=== PATIENT | male | born 1960 | race African-American/Black ===

== ENCOUNTER 2017-05-06 09:13 | Emergency (ER) | payer BC ==
[~2017-05-06] VITALS: Ht 172.7 cm; Wt 64.0 kg
[~2017-05-06 09:13] MED LIST: AMLO10TA80 PO; ATEN-177 PO; GABA-531 PO; METH5TAB2 PO; NAPR-681 PO; OMEP20CA10 PO
[2017-05-06] MEDS ORDERED: ALBUTEROL (0.083%) 2.5MG/3ML NEB HHN STA (11:11)
[2017-05-06 11:52] LABS: CARBON DIOXIDE 32 mEq/L (21-32); CHLORIDE 97 mEq/L (98-107)
[2017-05-06 12:09] VITALS: BP 155/95
[2017-05-06 12:18] LABS: BASOPHILS % 0.6 % (0.0-2.0); EOSINOPHILS % 0.2 % (0.0-5.0); HEMATOCRIT. 42.5 % (42.0-52.0); HEMOGLOBIN. 14.3 g/dL (14.0-18.0); LYMPHOCYTES % 22.2 % (20.0-50.0); MEAN CORPUSCULAR HEMOGLOBIN 29.1 pg (28.0-32.0); MEAN CORPUSCULAR VOLUME 86.4 fL (80.0-94.0); MEAN PLATELET VOLUME 8.4 fl (7.4-10.4); MONOCYTES % 10.6 % (2.0-8.0); NEUTROPHILS % 66.4 % (40.0-76.0); PLATELET 277 x1000/uL (130-400); RED BLOOD CELL COUNT 4.92 mill/uL (4.7-6.1); RED CELL DISTRIBUTION WIDTH 13.4 % (11.6-14.6)
== END 2017-05-06 12:52 | disposition home or self-care (01) ==
LOC: ER 09:40
DX: R05 Cough (principal); R06.02 Shortness of breath; D72.829 Elevated white blood cell count, unspecified
CPT/HCPCS: 36415; 71010; 80053; 85025; 94640; 99285; J7611

== ENCOUNTER 2021-02-12 12:05 | Inpatient (IN) | payer OTHER, BC ==
[~2021-02-12] VITALS: Ht 167.6 cm; Wt 111.1 kg
[~2021-02-12 12:05] MED LIST changes: -GABA-531 PO; +GABA-532 PO; +METH-816 PO; -METH5TAB2 PO; -OMEP20CA10 PO; +OMEP20CA14 PO
[2021-02-12] MEDS ORDERED: KETOROLAC 30MG/ML VIAL IV STA (14:06)
[2021-02-12] MEDS ORDERED: NITROGLYCERIN 0.4MG TABLET SL SL PRN (14:15)
[2021-02-12] MEDS ORDERED: ASPIRIN 81MG TABLET PO ONE (14:15)
[2021-02-12] MEDS ORDERED: SODIUM CHLORIDE 0.9% 1,000 ML IV ONE (14:15)
[2021-02-12 17:14] LABS: D-DIMER 1.14 mg/L FEU (<0.50); INR 1.1; PARTIAL THROMBOPLASTIN TIME 32.8 sec (23.4-31.0); PROTHROMBIN TIME 11.8 sec (9.6-11.0)
[2021-02-12 17:16] LABS: BASOPHILS % 0.4 % (0.0-2.0); CHLORIDE 105 mEq/L (98-107); EOSINOPHILS % 0.8 % (0.0-5.0); HEMATOCRIT. 40.6 % (42.0-52.0); HEMOGLOBIN. 13.5 g/dL (14.0-18.0); LYMPHOCYTES % 23.6 % (20.0-50.0); MEAN CORPUSCULAR HEMOGLOBIN 28.9 pg (28.0-32.0); MEAN CORPUSCULAR VOLUME 87.2 fL (80.0-94.0); MEAN PLATELET VOLUME 8.4 fl (7.4-10.4); MONOCYTES % 12.2 % (2.0-8.0); PLATELET 230 x1000/uL (130-400); RED BLOOD CELL COUNT 4.65 mill/uL (4.7-6.1); RED CELL DISTRIBUTION WIDTH 13.5 % (11.6-14.6)
[2021-02-12] MEDS ORDERED: LEVOFLOXACIN 500MG PREMIX 100 ML IV ONE (17:45)
[2021-02-12] MEDS ORDERED: ONDANSETRON HCL 4MG/2ML INJ IV PRN (22:00)
[2021-02-12] MEDS ORDERED: ACETAMINOPHEN 325MG TABLET PO PRN (22:00)
[2021-02-12] MEDS ORDERED: HYDROMORPHONE HCL/PF 2MG/ML CPJ IV PRN (22:00)
[2021-02-12] MEDS ORDERED: CLONIDINE 0.1MG TABLET PO PRN (22:00)
[2021-02-12] MEDS ORDERED: NALOXONE HCL 0.4MG/ML VIAL IV PRN (22:15)
[2021-02-12 23:00] VITALS: BP 154/85
[2021-02-13] VITALS (7 sets, daily range): BP systolic 146–178; BP diastolic 62–96
[2021-02-13] MEDS: HYDROCODONE/ACETAMINOPHEN 5/325MG TABLET PO PRN ×2 (03:36→08:27)
[2021-02-13 06:49] LABS: BASOPHILS % 0.3 % (0.0-2.0); EOSINOPHILS % 1.3 % (0.0-5.0); HEMATOCRIT. 37.7 % (42.0-52.0); HEMOGLOBIN. 12.7 g/dL (14.0-18.0); LYMPHOCYTES % 23.7 % (20.0-50.0); MEAN CORPUSCULAR HEMOGLOBIN 29.6 pg (28.0-32.0); MEAN CORPUSCULAR VOLUME 87.8 fL (80.0-94.0); MEAN PLATELET VOLUME 8.8 fl (7.4-10.4); MONOCYTES % 12.8 % (2.0-8.0); NEUTROPHILS % 61.9 % (40.0-76.0); PLATELET 213 x1000/uL (130-400); RED BLOOD CELL COUNT 4.29 mill/uL (4.7-6.1); RED CELL DISTRIBUTION WIDTH 13.3 % (11.6-14.6)
[2021-02-13 06:57] LABS: CHLORIDE 106 mEq/L (98-107)
[2021-02-13] MEDS ORDERED: ASPIRIN 81MG TABLET PO SCH (11:00)
[2021-02-13] MEDS ORDERED: AMLODIPINE 10MG TABLET PO SCH (13:45)
[2021-02-13] MEDS ORDERED: HYDRALAZINE 20MG/ML VIAL IV PRN (13:45)
[2021-02-13] MEDS ORDERED: LORAZEPAM 2MG/ML CPJ IV PRN (13:45)
[2021-02-13] MEDS ORDERED: DIPHENHYDRAMINE 50MG/ML VIAL IV PRN (13:45)
[2021-02-13] MEDS ORDERED: LEVO750T46 MT ×3 (13:46→17:11)
[2021-02-13] MEDS ORDERED: ASPI-1497 MT (13:46)
[2021-02-13] MEDS ORDERED: ATENOLOL 50 MG TABLET PO SCH (14:00)
[2021-02-13 14:52] LABS: T4 FREE 1.19 ng/dL (0.76-1.46)
[2021-02-13 16:21] LABS: CREATINE KINASE MB FRACTION < 1.0 ng/mL (0.5-3.6)
[2021-02-13 16:23] LABS: CREATINE KINASE 88 IU/L (39-308)
[2021-02-13] MEDS ORDERED: HYDR-4001 MT (17:11)
[2021-02-13] MEDS ORDERED: NAPR-677 MT (17:21)
[2021-02-13] MEDS ORDERED: LEVOFLOXACIN 500MG PREMIX 100 ML IV SCH (18:00)
== END 2021-02-13 21:35 | disposition home or self-care (01) | DRG 313 ==
LOC: ER 12:05 → 8WST 18:03 → ENRESERV 21:54
PROVIDERS: ADMIT Hospitalist; ATTEND Hospitalist
DX: R07.89 Other chest pain (principal); I10 Essential (primary) hypertension; Z20.822 Contact with and (suspected) exposure to COVID-19; D64.9 Anemia, unspecified; E11.65 Type 2 diabetes mellitus with hyperglycemia; N45.3 Epididymo-orchitis; R79.89 Other specified abnormal findings of blood chemistry; Z79.899 Other long term (current) drug therapy
CPT/HCPCS: 36415; 71045; 71275; 76870; 80053; 80061; 82550; 82553; 82962; 83036; 83880; 84153; 84439; 84443; 84484; 85025; 85379; 87426; 93005; 93306; 93970; 93976; 99285; J1885; J1956; J7030; J7040; G0103